=== PATIENT | female | born 1955 | race Caucasian/White ===

== ENCOUNTER → 2024-04-15 | Day surgery (SDC) | payer MEDICARE ==
[~2024-04-15] MED LIST: CALCIUM600 MG PO; COMBIVENT RESPIM4 GM IH; CYMBALTA30 MG PO; FENTANYL CITRATE/PF 100MCG/2 ML INJ ONE; FOLIC ACID0.4 MG PO; GLYCOPYRROLATE INJ 0.2 MG/ML VIAL ONE; IBANDRONATE SO150 MG PO; LACTULOSE10 GM/15 M PO; LIDOCAINE HCL 2% LOCAL INJ 5 ML SDV VIAL INJ ONE; LISINOPRIL20 MG PO; MIDAZOLAM HCL 2 MG/2 ML VIAL ONE; NEURONTIN400 MG PO; NEXIUM40 MG PO; PROPOFOL IV EMULSION 10 MG/ML 20 ML VIAL ONE; PROPRANOLOL HCL10 MG PO; TRELEGY ELLIPT1 EACH INH; VITAMIN B121000 MCG PO; VITAMIN D350 MCG PO; WOMEN'S 50 PLU1 EACH PO
[2024-04-15] MEDS: LACTATED RINGER'S 1,000 ML ONE (05:57)
[2024-04-15 07:42] VITALS: TEMP 98.6
[2024-04-15 08:15] VITALS: BP 100/65; PULSE 84; RESP 16; O2SAT 96
== END | disposition home or self-care (01) ==
LOC: OR 05:18
PROVIDERS: ATTEND Internal Medicine Gastroenterology
DX: K74.60 Unspecified cirrhosis of liver (principal); I85.10 Secondary esophageal varices without bleeding; K29.50 Unspecified chronic gastritis without bleeding; K31.89 Other diseases of stomach and duodenum; K21.9 Gastro-esophageal reflux disease without esophagitis; K22.70 Barrett's esophagus without dysplasia; B19.20 Unspecified viral hepatitis C without hepatic coma; I10 Essential (primary) hypertension; E55.9 Vitamin D deficiency, unspecified; F17.200 Nicotine dependence, unspecified, uncomplicated; Z79.899 Other long term (current) drug therapy
CPT/HCPCS: 43239; 88305; 88342; J2003; J2250; J2704; J7121